=== PATIENT | female | born 1980 | race Caucasian/White ===

== ENCOUNTER 2018-11-26 17:15 | Emergency (ER) | payer MEDICAID ==
[2018-11-26] MEDS: IBUPROFEN 600 MG TAB PO (18:41)
[2018-11-26] MEDS: DIPHTH/TET/ACEL PERTUSS (ADULT) 0.5 ML VIAL IM* (19:21)
[2018-11-26] MEDS: LIDOCAINE 1% (MDV) 10 ML INJ INJ (19:21)
== END 2018-11-26 20:32 | disposition home or self-care (01) ==
LOC: FTE 17:15
DX: S62.632B Displaced fracture of distal phalanx of right middle finger, initial encounter for open fracture (principal); W26.8XXA Contact with other sharp object(s), not elsewhere classified, initial encounter; Y92.9 Unspecified place or not applicable; Z23 Encounter for immunization
CPT/HCPCS: 12001; 73140; 90471; 90715; 99283-25

== ENCOUNTER 2018-11-29 15:34 | Emergency (ER) | payer MEDICAID | END 2018-11-29 16:31 | disposition home or self-care (01) | LOC: E/R 16:31 | DX: Z48.01 Encounter for change or removal of surgical wound dressing (principal) | CPT/HCPCS: 99281; Z7502 ==